=== PATIENT | female | born 1975 | race Caucasian/White ===

== ENCOUNTER 2020-05-15 14:04 | Emergency (ER) | payer BC, OTHER ==
--- NOTE | 2020-05-15 14:39 | EDM.PDOC ---
ED HPI GENERAL MEDICAL PROBLEM - General Chief Complaint: Trauma Stated Complaint: FALL/HEAD INJURY Time Seen by Provider: 05/15/20 14:29 Source of Information: Reports: Patient History Limitations: Reports: No Limitations - History of Present Illness INITIAL COMMENTS - FREE TEXT/NARRATIVE: A trauma alert was called for this patient. Mrs. Garcia is a very pleasant 44-year-old woman with a past medical history significant for untreated anxiety, who now presents the ED with head and neck pain after falling around 07:00 to 08:00 this morning. She states that she was going up a couple of concrete/rock steps in her backyard, when she tripped, falling forward, striking her forehead, left cheek, and right shoulder. She is unsure if she was knocked unconscious. She states that she has a severe headache to her posterior right head, that extends to her right ear, as well as pain under her right mandible. Here in the ED, the patient's initial BP is found to be slightly elevated at 129/94, with a tachypnea of 29 rpm. She is afebrile, saturating 100% on room air. A cervical collar was placed shortly after arrival to the ED. Other than this morning's injury, the patient denies recent fever, chills, sore throat, ear pain, nasal or sinus congestion, cough, dyspnea, chest pain, palpitations, nausea, vomiting, constipation, diarrhea, abdominal pain, urinary symptoms, recent weight gain or weight loss, recent bloody bowel movements or black bowel movements, recent joint aches, headaches, or rashes. The patient's PCP is Dr. Juan Jose Lugo. Right Neck Pain Score (Numeric/FACES): 10 Right Jaw Pain Score (Numeric/FACES): 10 Headache Pain Score (Numeric/FACES): 10 Right Shoulder Pain Score (Numeric/FACES): 10 - Related Data Allergies Allergy/AdvReac Type Severity Reaction Status Date / Time No Known Allergies Allergy Verified 05/15/20 14:46 Home Meds: Home Meds . [No Known Home Meds] 05/15/20 [History] Past Medical History : 2 Para: 2 Psychiatric History: Reports: Anxiety (untreated), Panic Attack - Past Surgical History HEENT Surgical History: Reports: Oral Surgery (wisdom teeth extraction) Female Surgical History: Reports: Section (x 1), Other (See Below) (IUD removal) Social & Family History - Tobacco Use Smoking Status *Q: Former Smoker Years of Tobacco use: 16 Packs/Tins Daily: 1 Month/Year Tobacco Last Used: Quit 2009 - Alcohol Use Alcohol Use History: Yes Alcohol Use Frequency: Socially - Recreational Drug Use Recreational Drug Use: No - Living Situation & Occupation Living situation: Reports: , with Spouse, with Family (2 kids) Occupation: Unemployed Review of Systems - Review of Systems Review Of Systems: Comprehensive ROS is negative, except as noted in HPI. ED EXAM, GENERAL - Physical Exam Exam: See Below Exam Limited By: No Limitations General Appearance: Alert, WD/WN, Anxious (crying) Eye Exam: Bilateral Eye: EOMI, Normal Inspection, PERRL Ears: Normal External Exam, Normal Canal, Hearing Grossly Normal, Normal TMs Nose: Normal Inspection, Normal Mucosa, No Blood Throat/Mouth: Normal Inspection, Normal Lips, Normal Teeth, Normal Gums, Normal Oropharynx, Normal Voice, No Airway Compromise Head: Normocephalic, Other (Abrasion to the right forehead and left cheek) Neck: Full Range of Motion, Other (After the CT scan of the neck returned negative, the cervical collar was opened and the patient's posterior cervical spine palpated. She cried out in pain. The cervical collar was replaced.) Respiratory/Chest: No Respiratory Distress, Lungs Clear, Normal Breath Sounds, No Accessory Muscle Use Cardiovascular: Normal Peripheral Pulses, Regular Rate, Rhythm, No Edema, No Gallop, No JVD, No Murmur, No Rub Peripheral Pulses: 3+: Radial (L), Radial (R) GI/Abdominal: Normal Bowel Sounds, Soft, Non-Tender, No Organomegaly, No Distention, No Abnormal Bruit, No Mass (Female) Exam: Deferred Rectal (Female) Exam: Deferred Back Exam: Normal Inspection, Full Range of Motion, NT Extremities: Normal Inspection, Normal Range of Motion, No Pedal Edema, Normal Capillary Refill Neurological: Alert, Oriented, CN II-XII Intact, Normal Cognition, No Motor/Sensory Deficits Psychiatric: Anxious, Tearful Skin Exam: Warm, Dry, Intact, Normal Color, No Rash Course - Vital Signs Last Recorded V/S: Last Vital Signs Temp 37.3 C 05/15/20 16:25 Pulse 96 05/15/20 16:25 Resp 16 05/15/20 16:25 BP 129/102 H 05/15/20 16:25 Pulse Ox 97 05/15/20 16:25 - Orders/Labs/Meds Orders: Active Orders 24 hr Category Date Time Status Max Facial Sinus wo Cont [CT] Routine Exams 05/15/20 16:04 Taken Meds: Medications Discontinued Medications Generic Name Dose Route Start Last Admin Trade Name Patti PRN Reason Stop Dose Admin Hydrocodone Bitart/Acetaminophen 1 tab 05/15/20 15:47 05/15/20 16:03 [place] 325-5 Mg PO 05/15/20 15:48 1 tab ONETIME STA Administration Ibuprofen 600 mg 05/15/20 15:47 05/15/20 16:03 Motrin PO 05/15/20 15:48 600 mg ONETIME ONE Administration Lorazepam 0.5 mg 05/15/20 16:05 05/15/20 16:23 Ativan PO 05/15/20 16:06 0.5 mg ONETIME ONE Administration - Re-Assessments/Exams Free Text/Narrative Re-Assessment/Exam: 05/15/20 14:31 As above, the patient fell this morning going up some steps, striking her face and right shoulder, and now has pain to her right posterior lateral head, extending to her right ear. I have ordered a CT of the head and cervical spine, particularly to evaluate for a basal skull fracture. 05/15/20 15:48 CT of the head without contrast is read by Dr. Roland as: 1. Nothing acute is appreciated on noncontrast head CT exam. CT of the cervical spine without contrast is read by Dr. Roland as: 1. Degenerative change as noted above. 2. No acute fracture is appreciated on CT study of the cervical spine. I discussed the CT results with the patient and opened her cervical collar. She is still extremely emotional and crying. She did not tolerate even mild palpation of her posterior cervical spine, therefore I reapplied the cervical collar. I have ordered 1 tablet of [place] and 600 mg of ibuprofen. Due to her continued pain, I asked the systems technician to perform reconstruction images of the lower head/upper neck CT images, and asked to have Dr. Roland review them, to make sure that there is no fracture of the mandible. In the meantime, I will also order Ativan 0.5 mg po. 05/15/20 17:41 I have not heard back from the Radiologist. I attempted contact him, but there was no answer at his number, therefore we left a message for him to call us back. The systems technician has left for the day, therefore I do not know if the Radiologist had gotten back to him or not. Following lorazepam, [place], and ibuprofen, the patient states that she is feeling much better. She is still visibly anxious and somewhat tearful, but much improved from earlier. I explained the situation with the CT scan reconstr uctions. I offered to call the Trauma Surgeon to see if he would be willing to keep the patient in observation overnight, however, she stated that she feels well enough to go home. I am recommending [id number] ibuprofen. I recommended that if her symptoms persist, that she follow-up with her PCP, who could then order an outpatient MRI of her head and neck, to better evaluate the soft tissues. Departure - Departure Time of Disposition: 17:44 Disposition: Home, Self-Care 01 Condition: Good Clinical Impression: Fall from ground level, Head pain, Anxiety - Discharge Information *PRESCRIPTION DRUG MONITORING PROGRAM REVIEWED*: Not Applicable *COPY OF PRESCRIPTION DRUG MONITORING REPORT IN PATIENT JAX: Not Applicable Referrals: Juan Jose Lugo Jr, MD [Primary Care Provider] - Forms: ED Department Discharge Additional Instructions: You were seen in the emergency room after falling forward while going up steps this morning, striking your face and right shoulder. Work-up in the ER included a CT scan of your head and cervical spine. Your entire work-up was unremarkable. No injuries to your head or cervical spine were found. Despite a negative work-up, you continue to have an inordinate amount of pain. The etiology of the pain is not entirely clear, but did improve after you were given some [place], ibuprofen, and Ativan. Requesting an overnight observation under the trauma surgeon was offered, but declined. We recommend that you take [id number] ibuprofen, 3 tablets (600 mg) up to every 8 hours, with food, as needed for discomfort. If your symptoms persist, please follow-up with your PCP, Dr. Juan Jose Lugo, to discuss the option of an outpatient MRI of your head and/or neck, to further evaluate the cause of your pain. If any other problems, please do not hesitate to return to the ER. Sepsis Event Note (ED) - Focused Exam Vital Signs: Vital Signs Temp Pulse Resp BP Pulse Ox 05/15/20 16:25 37.3 C 96 16 129/102 H 97 05/15/20 14:45 36.9 C 97 29 H 129/94 H 100 - My Orders Last 24 Hours: My Active Orders 05/15/20 16:04 Max Facial Sinus wo Cont [CT] Routine - Assessment/Plan Last 24 Hours: My Active Orders 05/15/20 16:04 Max Facial Sinus wo Cont [CT] Routine
--- NOTE | 2020-05-15 15:00 | CT ---
CT cervical spine Technique: Multiple axial sections were obtained from above C1 to the top of T3. Reconstructed coronal and sagittal images were reviewed. Findings: Degenerative change is noted between the dens and anterior arch of C1. Mild disc space narrowing at C4-5, C5-6 and more severe disc space narrowing at C6-7. Posterior osteophytes noted at C5-6 and C6-7. Mild spondylolisthesis is noted at C3-4 and C4-5 which is felt to be due to degenerative apophyseal change. Vertebral body heights are maintained. Mild degenerative change is noted between the dens and anterior arch of C1. Mild to moderate left-sided neural foraminal stenosis is noted at C6-7. Other neural foramina are fairly well preserved. No bony central canal stenosis is seen. No acute fracture is appreciated. Impression: 1. Degenerative change as noted above. 2. No acute fracture is appreciated on CT study of the cervical spine. Diagnostic code #2 This report was dictated in MDT
--- NOTE | 2020-05-15 15:02 | CT ---
Head CT Technique: Multiple axial sections through the brain were obtained. Intravenous contrast was not utilized. Comparison: No prior intracranial imaging is available. Findings: Ventricles along with basal cisterns and sulci over the convexities are within normal limits for the patient's age. No abnormal parenchymal densities are seen. No evidence of intracranial hemorrhage. No midline shift or mass-effect is seen. Bone window settings were reviewed. Visualized mastoid sinuses and visualized paranasal sinuses show nothing acute. No acute calvarial finding is seen. Impression: 1. Nothing acute is appreciated on noncontrast head CT exam. Diagnostic code #1 This report was dictated in MDT
[2020-05-15] MEDS ORDERED: Acetaminophen/HYDROcodone 325-5 MG Tab PO STA (15:47)
[2020-05-15] MEDS ORDERED: Ibuprofen 600 MG Tab PO ONE (15:47)
[2020-05-15] MEDS ORDERED: LORazepam 0.5 MG Tab PO ONE (16:05)
--- NOTE | 2020-05-16 09:01 | CT ---
CT facial bones Technique: Multiple axial sections through the facial bones were obtained. Reconstructed coronal and sagittal images were reviewed. Findings: Paranasal sinuses are clear. Mastoid sinuses are clear. Ostiomeatal complexes are clear. No facial bone fracture is appreciated. Impression: 1. No acute is appreciated on CT study of the facial. Diagnostic code #1 This report was dictated in MDT MTDD
== END 2020-05-15 18:00 | disposition home or self-care (01) ==
LOC: JD.ED 14:04
DX: S00.81XA Abrasion of other part of head, initial encounter (principal); M54.2 Cervicalgia; M25.511 Pain in right shoulder; F41.9 Anxiety disorder, unspecified; Z87.891 Personal history of nicotine dependence; Z98.890 Other specified postprocedural states; W01.0XXA Fall on same level from slipping, tripping and stumbling without subsequent striking against object, initial encounter
CPT/HCPCS: 70450; 70486; 72125; 99284; A9270; 99283